=== PATIENT | female | born 1985 | race Caucasian/White ===

== ENCOUNTER → 2016-03-30 | Outpatient (CLI) | payer OTHER ==
[~2016-03-30] MED LIST: CALC500C3; MTR600X PO; PRENTAB26 PO
[2016-03-30 14:08] LABS: GTGD 50 Grams
[2016-03-31 15:19] LABS: AFP CONCENTRATION 44.4 NG/ML; AFP MULTIPLE OF MEDIAN 1.04; AFPTS GESTATIONAL AGE 17.4 WEEKS; AFPTS INSULIN DEP DIABETIC? NO; AFPTS MATERNAL WT 133 LBS; ALPHA-FETOPROTEIN RACE CAUCASIAN=W; EDD DETERMINED BY ULTRASOUND; ESTRIOL MULTIPLE OF MEDIAN 0.76; HISTORY OF NTD NO; INHIBIN A 174 PG/ML; INHIBIN A MOM 0.99; REPEAT SAMPLE? NO; hCG MULTIPLE OF MEDIAN 1.33
== END | disposition home or self-care (01) ==
LOC: C.LAB1850 09:58
PROVIDERS: ATTEND Obstetrics & Gynecology
DX: O20.0 Threatened abortion (principal)

== ENCOUNTER → 2016-04-15 | Outpatient (CLI) | payer OTHER | END | disposition home or self-care (01) | LOC: C.LAB1850 08:48 | PROVIDERS: ATTEND Obstetrics & Gynecology | DX: O28.1 Abnormal biochemical finding on antenatal screening of mother (principal); Z3A.00 Weeks of gestation of pregnancy not specified ==

== ENCOUNTER → 2016-06-16 | Outpatient (CLI) | payer OTHER ==
[2016-06-16 09:49] LABS: HEMATOCRIT 37.7 % (37-47)
[2016-06-16 17:52] LABS: URINE APPEARANCE CLEAR (CLEAR); URINE BILIRUBIN NEG (NEG); URINE COLOR YELLOW; URINE NITRITE NEG (NEG); URINE PH 5.5 (4.5-7.5); URINE SPECIFIC GRAVITY 1.018 (1.000-1.030); UROBILINOGEN NEG (NEG)
[2016-06-16 17:53] LABS: MANUAL MICROSCOPIC REQUIRED? NO; REVIEW REQ? NO
== END | disposition home or self-care (01) ==
LOC: C.LAB1850 07:02
PROVIDERS: ATTEND Obstetrics & Gynecology
DX: O34.219 Maternal care for unspecified type scar from previous cesarean delivery (principal); O28.1 Abnormal biochemical finding on antenatal screening of mother

== ENCOUNTER 2016-06-30 14:12 | Emergency (ER) | payer OTHER ==
[~2016-06-30] VITALS: Ht 172.7 cm; Wt 72.9 kg
[~2016-06-30 14:12] MED LIST changes: -CALC500C3
[2016-06-30 14:17] VITALS: TEMP 36.7; Ht 172.7 cm; Wt 72.9 kg
[2016-06-30] MEDS ORDERED: XYLOCAINE 1%/SOD BICARB 20 ML VIAL INFIL ONE (14:30)
--- NOTE | 2016-06-30 14:59 | EMERGENCY ROOM VISIT NOTE ---
ED Visit Note First contact with patient: 14:21 CHIEF COMPLAINT: Left upper Leg laceration HISTORY OF PRESENT ILLNESS: This 31 week female presents the ER with chief complaint of left thigh laceration. The patient states that she was crafting and accidentally cut her left thigh with an X-Acto knife. Her tetanus is up-to-date. The bleeding has stopped. The patient is not on any blood thinners. REVIEW OF SYSTEMS: 6 system review was performed and was negative unless stated otherwise in history of present illness. PMH: The patient is healthy; SOCIAL HISTORY: Patient denies any tobacco or alcohol use. PHYSICAL EXAM: Vital Signs: Were reviewed Reviewed Nurse's notes. GENERAL: 31 week female appears in no acute distress. MENTAL Status: Alert and oriented 3. LEFT THIGH: There is a 1 cm long laceration on the anterior aspect of the leg. The edges are gaping apart. There is no foreign material in the wound and it looks clean. There is no active bleeding. No deep structures such as tendons or nerves are seen in the base of the wound. EMERGENCY DEPARTMENT COURSE: The patient was evaluated. The patient's EMR and medication list were reviewed. Wound Repair: Complexity: Basic. Verbal consent was obtained after the risks and benefits were explained, including but not limited to bleeding, scarring, infection, pain, and bone/joint /nerve damage. The skin was prepped with betadine and a sterile field set. The wound was anesthetized with 1.0 ml of 1% buffered lidocaine. With direct pressure the bleeding subsided. Copious irrigation was performed using sterile saline. The wound was explored for foreign bodies and none found. Debridement was not performed. The wound edges were approximated using 5-0 Ethilon with 3 simple interrupted sutures. Hemostasis and excellent approximation was achieved. Antibacterial ointment and a sterile dressing applied. Detailed wound care instructions and signs and symptoms of infection reviewed with the patient. No complications and the patient tolerated the procedure well. DIAGNOSIS: 1 cm left Leg laceration DISCHARGE INSTRUCTIONS & TREATMENT: Keep wound clean and dry. No water on the area for 12-24 hrs then no soaking until sutures removed. Do not allow any crusting or dried blood to accumulate on sutures. If this occurs, use a 1:1 solution of hydrogen peroxide/water on a Q-tip to clean the wound. Use an antibiotic ointment for 3-4 days, then let wound dry. Suture removal in 8-10 days. Follow up sooner for any signs of infection (increasing redness, swelling , drainage). Ice and elevate for swelling and pain. Tylenol 650 mg every 6 hrs for pain. Keep covered when in sun until sutures removed then SPF 50 or higher for one year. Vitamin E oil if desired two weeks after suture removal for reduction of scar. Problem List Medical Problems: (1) Bronchitis Status: Chronic (2) Pneumonia Status: Chronic Surgical Problems: (1) Hx of tonsillectomy Status: Resolved Current/Historical Medications Scheduled Multivit/Min/Iron/Fol Ac/Pren ( Vitamin), 1 TAB PO DAILY Allergies Coded Allergies: No Known Allergies (Unverified , 03/23/14) Vital Signs Date Time Temp Pulse Resp B/P Pulse Ox O2 Delivery O2 Flow Rate FiO2 06/30/16 14:17 36.7 92 18 133/84 100 Room Air Departure Information Referrals No Doctor, Assigned (PCP) Patient Instructions [facility]
[2016-06-30 15:04] VITALS: BP 129/72; PULSE 94; O2SAT 97
== END 2016-06-30 15:13 | disposition home or self-care (01) ==
LOC: C.EDB 14:16 → C.EDD 15:13
DX: S81.812A Laceration without foreign body, left lower leg, initial encounter (principal); W26.0XXA Contact with knife, initial encounter; Z3A.31 31 weeks gestation of pregnancy

== ENCOUNTER → 2016-08-08 | Outpatient (CLI) | payer OTHER ==
[~2016-08-08] MED LIST changes: +CALC500C3; -MTR600X PO
== END | disposition home or self-care (01) ==
LOC: C.LABSPEC 17:36
PROVIDERS: ATTEND Obstetrics & Gynecology
DX: Z34.83 Encounter for supervision of other normal pregnancy, third trimester (principal)

== ENCOUNTER 2016-08-19 08:36 | Inpatient (IN) | payer OTHER ==
[~2016-08-19] VITALS: Ht 172.7 cm; Wt 78.5 kg
[~2016-08-19 08:36] MED LIST changes: -CALC500C3
[2016-08-19] MEDS ORDERED: LACTATED RINGER'S 1000ML 1,000 ML IV SCH (09:33)
[2016-08-19] MEDS ORDERED: LACTATED RINGER'S 1000ML 1,000 ML IV PRN (09:33)
[2016-08-19] MEDS ORDERED: PENICILLIN G POTASSIUM IV 3 MU in DEXTROSE 5% 100ML 100 ML IV PRN (09:45)
[2016-08-19] MEDS ORDERED: PENICILLIN G POTASSIUM IV 6 MU in DEXTROSE 5% 250ML 250 ML IV ONE (10:00)
[2016-08-19 10:04] LABS: HEMATOCRIT 39.5 % (37-47); MEAN CELL VOLUME 78.2 fL (80-100); MEAN CORPUSCULAR HEMOGLOBIN 24.8 pg (25-34); MEAN CORPUSCULAR HGB CONC 31.6 g/dl (32-36); MEAN PLATELET VOLUME 9.4 fL (7.4-10.4); PLATELET COUNT 299 K/uL (130-400); RED BLOOD COUNT 5.05 M/uL (4.2-5.4); WHITE BLOOD COUNT 16.33 K/uL (4.8-10.8)
[2016-08-19 10:20] VITALS: Ht 172.7 cm; Wt 78.5 kg
[2016-08-19] MEDS ORDERED: CALC500C3 (10:20)
[2016-08-19] MEDS ORDERED: BUPIVACAINE 0.25% 30 ML VIAL ONE (10:42)
[2016-08-19] MEDS ORDERED: FENTANYL 2MCG/ML ROPIV 1.25MG/ML 100ML BAG EPI ONE (10:43)
[2016-08-19] MEDS ORDERED: EpHEDrine SULFATE INJ 50 MG/ML AMP ONE (10:43)
[2016-08-19] MEDS ORDERED: FENTANYL CITRATE INJ 50 MCG/1 ML 2 ML VIAL ONE (10:43)
[2016-08-19] MEDS ORDERED: LACTATED RINGER'S 1000ML 500 ML IV PRN ×2 (11:22→11:28)
[2016-08-19] MEDS ORDERED: NALOXONE HCL INJ 1 MG in SODIUM CHLORIDE 0.9% 1000ML 1,000 ML IV PRN ×4 (11:28)
[2016-08-19] MEDS ORDERED: DiphenhydrAMINE HCL 50 MG/ML VIAL IV PRN (11:30)
[2016-08-19] MEDS ORDERED: NALOXONE HCL INJ 0.4 MG/1 ML VIAL/CARP IV PRN (11:30)
[2016-08-19] MEDS ORDERED: NALBUPHINE HCL INJ 10 MG/ML AMP IV PRN (11:30)
[2016-08-19] MEDS ORDERED: PROMETHAZINE HCL INJ 25 MG in SODIUM CHLORIDE 0.9% 50ML 50 ML IV PRN (11:30)
[2016-08-19] MEDS ORDERED: OXYTOCIN 30 UNITS/500ML NSS IV PRN ×2 (11:30→14:00)
[2016-08-19] MEDS ORDERED: FENTANYL 2MCG/ML ROPIV 1.25MG/ML 100ML BAG EPI PRN (11:30)
[2016-08-19] MEDS ORDERED: EpHEDrine SULFATE INJ 50 MG/ML AMP IV PRN (11:30)
--- NOTE | 2016-08-19 12:13 | Medical Student: [facility] ---
Med Student History & Physical Date of Service Aug 19, 2016. Chief Complaint Ruptured Membranes History of Present Illness Source: patient Mely is a 31 year old female with an EDC of 09/04/2016 confirmed by ultrasound who presents at 37+5 weeks GA due to SROM. She is an employee here at [employer] and while working this morning, she experienced some leakage of fluid. She reports a small amount of vaginal bleeding today, contractions, and movements. She also reports losing the mucus plug beginning two days ago. As her contractions increased, she requested an epidural. Her was complicated by unexplained vaginal bleeding from week 7 to approximately week 15-16. Since then, she has had no episodes of vaginal bleeding (except for as noted above). Mely also has a history of depression, for which has never been treated with medication. She reports stressful events in her family but says her depression never got to be "as bad as it once was" and denies having thoughts of self-harm during . Otherwise, she has had an unremarkable course since the cessation of bleeding episodes. labs: Blood type A+ GBS positive Negative Ab screen Initial Hct/Hb - 41.2/13.8 Rubella immune VDRL/RPR nonreactive HBsAg negative HIV counseling/testing negative Gonorrhea/chlamydia negative Diabetes screen - 121 mg/dL Negative screening for CF, negative second trimester serum screening OB History G1: delivery of a live male in August 2014 via emergency due to non-reassuring heart tones and terminal bradycardia at 37+3 weeks GA. 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 Cycles last 28 days (OCP use). Menses last 5-6 days. Last Pap smear was in 2013. Denies hx of abnormal Pap smear. Negative STI history. Past Medical History Significant for depression, which has never been treated with medication. Otherwise she denies a history of chronic medical conditions and allergies. She reports taking no medications regularly aside from a vitamin. Past Surgical History Emergency in 2014, tonsillectomy, wisdom teeth removal. Family History Positive breast cancer history in maternal grandmother and lung cancer in grandfather. Mother and siblings have no chronic medical conditions, including hx of DM and HTN. Father has DM. No hx of stroke or AL. Social History Smoking Status: Former Smoker Alcohol Use: socially (not had alcohol during ) Drug Use: none Marital Status: Housing status: lives with significant other Occupational Status: employed (works in [employer]) Allergies Coded Allergies: No Known Allergies (Unverified , 08/19/16) Home Medications Calcium Carbonate (Tums) Multivit/Min/Iron/Fol Ac/Pren ( Vitamin), 1 TAB PO DAILY Review of Systems Constitutional: No fever, No chills Eyes: No worsening of vision Respiratory: No wheezing, No shortness of breath, No dyspnea on exertion, No dyspnea at rest Cardiovascular: No chest pain, No edema Abdomen: No pain, No nausea, No vomiting, No diarrhea, No constipation Musculoskeletal: + problem reported Genitourinary - Female: No dysuria Normal as per HPI. Monitoring External Monitor: Baseline 150 bpm. Moderate variability. Absent accels. Early decels. Tocodynamometer: Contractions every 6 minutes. Laboratory Results 08/19/16 09:52 Test 08/19/16 09:52 Red Blood Count 5.05 M/uL (4.2-5.4) Mean Corpuscular Volume 78.2 fL (80-100) Mean Corpuscular Hemoglobin 24.8 pg (25-34) Mean Corpuscular Hemoglobin Concent 31.6 g/dl (32-36) RDW Standard Deviation 41.9 fL (36.4-46.3) RDW Coefficient of Variation 14.9 % (11.5-14.5) Mean Platelet Volume 9.4 fL (7.4-10.4) Assessment and Plan Mely is a 31 year old female with an EDC of 09/04/2016 confirmed by ultrasound who presents at 37+5 weeks GA due to SROM. Her was complicated by vaginal bleeding from week 7 to week 15-16. Expectant management. Continue monitoring with external heart monitor and tocodynamometer.
[2016-08-19] MEDS ORDERED: LANOLIN OINT EXT PRN ×2 (14:00)
[2016-08-19] MEDS ORDERED: BENZOCAINE 20% AER SPR 82.5 GM CAN EXT PRN (14:00)
[2016-08-19] MEDS ORDERED: ACETAMINOPHEN/CODEINE 300/30MG TAB PO PRN ×2 (14:00)
[2016-08-19] MEDS ORDERED: SUPERCREAM 0.870 % 15GM JAR EXT PRN (14:00)
[2016-08-19] MEDS ORDERED: ACETAMINOPHEN 325 MG TAB PO PRN (14:00)
[2016-08-19] MEDS ORDERED: HYDROCORTISONE ACETATE 25 MG SUPP PR PRN (14:00)
--- NOTE | 2016-08-19 14:18 | Vaginal Delivery Summary ---
Vaginal Delivery Summary The patient is a 31-year-old 2 para 1 with an EDC of 04 September who presented at 37+ weeks gestational age with spontaneous rupture of membranes. Patient was out of work and states that she was having some mild contractions subsequent rupture of membranes with increasing intensity. Patient's EDC established by dates and first trimester ultrasound. The patient's first ended in section for nonreassuring heart rate tracing. The patient desired a vaginal after section for this . She had been consented for the risks and benefits and had signed the consent. Patient's blood work shows a blood type of A+ antibody negative rubella immune hepatitis B negative she had a negative quad screen. She had an elevated 100 Glucola at 16 weeks with normal 2 hour glucose tolerance test at both 16 and 28 weeks she had a positive surge Mr. group B strep culture. Upon admission the patient was 4 cm dilated 80% effaced and -2 station penicillin was initiated for the positive GBS. Patient's contractions increased in intensity but were approximately every 7-8 minutes. She initially received an epidural and then Pitocin was initiated to bring the contractions closer together. Over the next 2 hours the patient progressed to full dilatation and began her second stage she pushed for approximately 30 minutes delivering a viable female over a second-degree midline laceration cord blood samples obtained placental delivered spontaneously in midline second degree laceration repaired with 4-0 Vicryl in routine fashion assessment a blood loss was 300 cc. Sponge and needle count was correct.
--- NOTE | 2016-08-19 16:00 | Anesthesia Procedure Note ---
Anesthesia Epidural Removal Nt Date & Time Aug 19, 2016 at 16:00 Vital Signs Pain Intensity: 8.0 Notes Mental Status: alert / awake / arousable, participated in evaluation Nausea / Vomiting: adequately controlled Pain: adequately controlled Airway Patency, RR, SpO2: stable & adequate BP & HR: stable & adequate Hydration State: stable & adequate Neuraxial Anesthesia: was administered Anesthetic Complications: no major complications apparent, pt satisfied with anesthetic care Epidural: removed without complications, with tip intact
[2016-08-19 16:25] VITALS: BP 143/92; PULSE 80; TEMP 37
[2016-08-19] MEDS: IBUPROFEN 600 MG TAB PO PRN (19:38)
[2016-08-19] MEDS: DOCUSATE SODIUM 100 MG CAP PO SCH (19:38)
[2016-08-19 19:40] VITALS: BP 123/79; PULSE 76; TEMP 36.6
[2016-08-20] VITALS (7 sets, daily range): BP systolic 106–130; BP diastolic 68–93; PULSE 65–85; TEMP 36.4–36.7; O2SAT 97–99
[2016-08-20] MEDS: IBUPROFEN 600 MG TAB PO PRN ×3 (04:56→19:38)
[2016-08-20 06:45] LABS: HEMATOCRIT 36.3 % (37-47)
--- NOTE | 2016-08-20 08:29 | Progress Note ---
Subjective Aug 20, 2016. Subjective conversation w/ patient, physical exam Ambulation: ambulating normally Feeding Type: Breast Feeding Objective Vital Signs Date Time Temp Pulse Resp B/P (MAP) Pulse Ox O2 Delivery O2 Flow Rate FiO2 08/20/16 04:40 36.6 85 20 125/80 (95) Room Air 08/20/16 00:00 Room Air 08/20/16 00:00 36.4 73 20 110/69 (83) Room Air 08/19/16 19:40 36.6 76 20 123/79 (94) Room Air 08/19/16 16:25 37.0 80 18 143/92 (109) Room Air 08/19/16 16:25 Room Air Physical Exam General Appearance: WELL-APPEARING, NO APPARENT DISTRESS Fundus: Firm, Non-Tender Extremities: no calf tenderness Laboratory Results Last 24 Hours Test 08/19/16 09:52 08/20/16 06:24 White Blood Count 16.33 K/uL Red Blood Count 5.05 M/uL Hemoglobin 12.5 g/dL 11.8 g/dL Hematocrit 39.5 % 36.3 % Mean Corpuscular Volume 78.2 fL Mean Corpuscular Hemoglobin 24.8 pg Mean Corpuscular Hemoglobin Concent 31.6 g/dl RDW Standard Deviation 41.9 fL RDW Coefficient of Variation 14.9 % Platelet Count 299 K/uL Mean Platelet Volume 9.4 fL Assessment and Plan Problem List Medical Problems: (1) Leg laceration Status: Acute Post- Day#: 1 Continue Routine Care: - routine care - doing well
[2016-08-20] MEDS ORDERED: DIPHTHERIA/TETANUS/PERTUSSIS 0.5 ML SYR/VIAL IM. ONE (09:00)
[2016-08-20] MEDS: PRENATAL VITAMIN TAB PO SCH (09:01)
[2016-08-20] MEDS: FERROUS SULFATE 325 MG TAB PO SCH (09:01)
[2016-08-20] MEDS: DOCUSATE SODIUM 100 MG CAP PO SCH ×2 (09:01→19:38)
[2016-08-20] MEDS ORDERED: COUGH DROP (SUGAR FREE) LOZ 24 LOZ/1 BOX PO PRN (15:45)
[2016-08-20] MEDS ORDERED: BISACODYL 5 MG TABEC PO SCH (20:00)
--- NOTE | 2016-08-20 23:49 | Discharge Instructions ---
Discharge Instructions Date of Service Aug 20, 2016. Admission Reason for Admission: Ruptured Membranes Discharge Discharge Diagnosis / Problem: after delivery Discharge Goals Goal(s): Routine recovery after delivery Medications Continue Dispensed Medications: supercream, dermaplast, tucks, lansinoh Activity Recommendations Activity Limitations: as noted below . Instructions / Follow-Up Instructions / Follow-Up ACTIVITY RECOMMENDATIONS: * Gradual return to full activity over the next 2-3 weeks. * No lifting - nothing heavier than baby over the next 2-3 weeks. * Do not engage in vigorous exercise, sexual activity or sports until cleared by your physician. * Do not drive or operate any motorized equipment until cleared by your physician. * You may shower/bathe daily. MEDICATIONS: For discomfort or pain, you may use Acetaminophen (Tylenol), Ibuprofen (Advil), or Naproxen (Aleve) following the package directions. For constipation you may use Colace following the package directions. BREAST CARE: If you are not breast feeding: * Wear a supportive bra 24 hours a day for one to two weeks. * Avoid stimulating your breasts and nipples as much as possible during the first few weeks after delivery. * When taking a shower, have the warm water hit your back, not breasts. * When your breasts feel full, apply ice packs. Usually three to four times a day helps ease the discomfort. * Take a mild pain medication (Tylenol / Motrin) when you are uncomfortable. If breast feeding: * Use breast milk to lubricate nipples. Lansinoh cream may be used for sore nipples. You do not need to remove cream prior to breast feeding. If using a different brand of cream, check the label for directions regarding removal of cream prior to nursing. * Wear a supportive bra. * If having problems with breasts or breast feeding, call a accounting consultant or your health care provider. EPISIOTOMY CARE: After delivery, if you have an episiotomy (stitches), the following steps will ease discomfort and aid healing. * For the first 24 hours after delivery, place ice packs next to your episiotomy to help reduce swelling. * After the first 24 hour-period, sitz baths, either portable or in the tub, are suggested. A shower with a shower arm sprayed over the episiotomy may be comforting. * Danuta care should be done after each voiding and bowel movement. Squirt warm water from a plastic bottle over the perineum (region of the body between the anus and urinary opening) and pat dry. * Use Dermoplast to ease discomfort. Shake container. [place] directly over the episiotomy. Place a Tucks on a clean sanitary pad next to your episiotomy. SPECIAL CARE INSTRUCTIONS: When you are discharged from the hospital, it is important for you to follow the instructions listed below: * During the first week at home, you should be able to care for yourself and your baby. In addition, the usual light household activities are encouraged. * Limit your activities to the way you feel. Do not try to clean the house or move furniture. Be sensible. * If you actively engage in sports and have done so up until the time of your delivery, you may resume these activities as soon as you feel able. This may take up to one month or even longer. Use good judgment. * Continue to take your vitamins for at least six weeks after the of your baby. * Your diet need not be limited unless you were on a special diet before your delivery. Breast-feeding mothers need around 2500 calories per day and at least 64-80 ounces of fluid per day (8 to 10 glasses). * You should eat foods from the four major food groups. Crash diets or fad diets are to be avoided. Eating lean meats, fresh fruits and vegetables, low-fat dairy products, high fiber foods and a regular exercise program, will help you get back to your pre- weight without putting your health at risk. * Constipation is sometimes a problem after delivery. Take a mild laxative as needed. If breast feeding, Milk of Magnesia is acceptable to use. You may use a suppository or Fleets enema if no episiotomy. * A daily shower or tub bath is suggested. Be sure to thoroughly and gently dry the perineum. * A bloody vaginal discharge will usually continue until around four weeks post . A small amount of bleeding may continue for as long as six weeks. Vaginal discharge changes from the bright red bleeding after delivery to pink then brownish and finally yellowish-pink before becoming white and disappearing. * Bleeding may increase with activity. Your first period may come in 4-8 weeks. If you are breast feeding, your period may be delayed even longer. * [place] (sex) can begin whenever both you and your partner feel comfortable and do not have any form of genital infection. It is recommended that you wait at least six weeks for internal and external healing to occur. If you have questions, please talk to your health care practitioner. A condom should be used to prevent infection and . * Foreplay, gentle intercourse and lubrication is very important the first several times to prevent pain. A water-based lubricant such as K-Y jelly or Astroglide may be used. * If you have RH negative blood and your baby is RH positive, you will receive RHOGAM by injection prior to discharge. The nurse will give you a card to keep with you that has the date and place that you received RHOGAM after delivery. * During your care, you had a Rubella screen done to check for the presence of rubella antibodies in your blood. If your test was negative, you will receive a Rubella vaccine prior to discharge. This vaccine may cause a fever, soreness at the injection site and flu-like symptoms. If these symptoms persist, notify your health care practitioner. is not advised for one month after a Rubella vaccine. * Verbalizes understanding of car seat law as reviewed with patient nursing. * Car Seat hand-out given and reviewed with patient by nursing. * Shaken baby information reviewed with patient by nursing. Call you doctor if: * Heavy bleeding (saturating several pads an hour) or passing clots the size of your fist. * A fever >101 degrees F (38.3 degrees C) on two occasions four hours apart and /or chills. * Unusual pain in the pelvic or vaginal areas. * "Baby Blues" lasting longer than two weeks. If you have any questions or concerns, call your health care practitioner at . FOLLOW UP VISIT: * Please call the office at to schedule a 6 week examination. It is important you keep this appointment. It is important for you to make arrangements for either yearly or twice yearly check-ups thereafter. Current Hospital Diet Patient's current hospital diet: Regular OB Diet Discharge Diet Recommended Diet: Regular Diet Pending Studies Studies pending at discharge: no Medical Emergencies . Who to Call and When: Medical Emergencies: If at any time you feel your situation is an emergency, please call 911 immediately. . Non-Emergent Contact Non-Emergency issues call your: [facility] . . "Provider Documentation" section prepared by Linette Zamora. . VTE Core Measure Inpt VTE Proph given/why not?: Treatment not indicated
[2016-08-21 07:10] VITALS: BP 117/80; PULSE 75; TEMP 36.4; O2SAT 100
--- NOTE | 2016-08-21 07:28 | Progress Note ---
Subjective Aug 21, 2016. Subjective conversation w/ patient, physical exam Ambulation: ambulating normally Voiding: no voiding problems Diet Tolerance: Regular Diet Lochia: Small Feeding Type: Breast Feeding Pain: no complaints Objective Vital Signs Date Time Temp Pulse Resp B/P (MAP) Pulse Ox O2 Delivery O2 Flow Rate FiO2 08/20/16 23:30 Room Air 08/20/16 23:30 36.6 65 20 106/68 (81) Room Air 08/20/16 15:50 Room Air 08/20/16 15:29 36.5 78 20 122/93 (103) 97 Room Air 08/20/16 12:37 36.7 69 20 130/80 (97) 99 Room Air 08/20/16 08:00 36.6 76 22 116/80 (92) 98 Room Air Physical Exam General Appearance: WELL-APPEARING, WD/WN, NO APPARENT DISTRESS Respiratory/Chest: lungs clear Cardiovascular: regular rate, rhythm Abdomen: non tender, soft Fundus: Firm, Relation to Umbilicus (2 down) Extremities: non-tender Assessment and Plan Problem List Medical Problems: (1) Leg laceration Status: Acute Post- Day#: 2 Continue Routine Care: stable, ready for d/c home, instructions reviewed, f/u 6 wk pp check. breast feeding, rh pos, rubella immune.
[2016-08-21] MEDS: FERROUS SULFATE 325 MG TAB PO SCH (08:00)
[2016-08-21] MEDS: IBUPROFEN 600 MG TAB PO PRN (08:14)
[2016-08-21] MEDS: PRENATAL VITAMIN TAB PO SCH (08:14)
[2016-08-21] MEDS: DOCUSATE SODIUM 100 MG CAP PO SCH (08:14)
[2016-08-21 11:00] VITALS: BP_DIAS 80; PULSE 75; TEMP 36.4
== END 2016-08-21 11:15 | disposition home or self-care (01) | DRG 775 ==
LOC: C.LD 08:36 → C.OBG 16:25
PROVIDERS: ADMIT Obstetrics & Gynecology; ATTEND Obstetrics & Gynecology
PROC: 10E0XZZ Delivery of Products of Conception, External Approach (ICD-10-PCS; principal; 2016-08-19)
PROC: 0KQM0ZZ Repair Perineum Muscle, Open Approach (ICD-10-PCS; principal; 2016-08-19)
DX: O99.824 Streptococcus B carrier state complicating childbirth (principal); Z3A.37 37 weeks gestation of pregnancy; O70.1 Second degree perineal laceration during delivery; Z37.0 Single live birth

== ENCOUNTER → 2016-10-13 | Outpatient (CLI) | payer OTHER ==
[~2016-10-13] MED LIST changes: +CALC500C3
== END | disposition home or self-care (01) ==
LOC: C.PAPS 16:34
PROVIDERS: ATTEND Obstetrics & Gynecology
DX: Z12.4 Encounter for screening for malignant neoplasm of cervix (principal)

== ENCOUNTER 2020-01-01 06:01 | Observation (INO) ==
--- NOTE | 2020-01-01 06:44 | Emergency Department Note ---
Impression & Plan Acute appendicitis, Rhinovirus, Acute right lower quadrant pain ED Provider Note NAME: AYAD JOHNSON AGE: 34 SEX: F ARRIVES VIA: Walk-In INFORMANT: Patient, ED PROVIDER(S): Marco Gibbs MD CHIEF COMPLAINT: Abdominal pain PLAN: Disposition: Admit to OR MEDICAL DECISION MAKING: The patient is a pleasant 34-year-old woman who presents emergency department for evaluation of right lower quadrant pain that began abruptly last night with associated vomiting x1 and persistent nausea. Her symptoms occur in the setting of having upper respiratory congestion that began over the weekend with mild sore throat but this is been improving. She denies any fevers, diarrhea, urinary symptoms. She is a week away from starting her cycle but does not typically get this type of pain or symptoms until the day prior. She denies any concerns for possibility of . 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 Otherwise she has a son in the garden but there are no reports of COVID-19 at his school. On arrival the patient is fatigued/uncomfortable appearing in no acute distress, afebrile stable vital signs. She has mild right lower quadrant tenderness without guarding or rebound. WBC 16.2 with neutrophil predominance. Chemistry without acidosis. Potassium 3.3 and electrolytes otherwise unremarkable. LFTs unremarkable. hCG was negative. UA with epithelial cells and patient denies urinary symptoms. Patient did have a bio fire performed and this was positive for rhinovirus which explains her recent URI symptoms. Importantly her bio fire was otherwise negative including a negative COVID-[address] had and pelvis subsequently did demonstrate appendiceal enlargement that was suspicious for appendicitis given the patient's point tenderness over McBurney's point and evolution of symptoms. Patient was ordered for cefoxitin. Resident, Dr. Mynor Solis, updated the patient on the plan. Resident, Dr. Mynor Solis, reviewed the patient's case with general surgery, Raymon Weber, general surgery BERENICE, with Dr. Nino, general surgery who admit the patient to the OR. This patient was managed with the assistance of resident, Dr. Mynor Solis. I discussed the case with the resident, examined the patient, and confirm the findings and plan as documented in this note. Triage Nursing notes reviewed and agree them. Prior medical records reviewed Vital Signs: reviewed and remarkable for no significant abnormalities Differential diagnosis: Appendicitis, ovarian cyst, ovarian torsion, ectopic , TOA, PID, infections, diverticulitis, UTI, obstruction, mesenteric ischemia, aortic pathology, inflammatory bowel disease, renal colic, PUD, pancreatitis, biliary pathology, hernia, volvulus, constipation, as well as other pathologies. ER treatment provided: See below. Diagnostics interpreted by me: Cardiac Monitoring: An order for continuous cardiac monitoring was placed and demonstrated NSR, 80 bpm, no ectopy. Laboratory studies: See below Imaging studies: CT abd pelvis IV con only CLINICAL HISTORY: Right-sided abdominal pain. Nausea. COMPARISON STUDY: July 2007 TECHNIQUE: Patient was scanned in a dynamic helical fashion during intravenous administration of 94 cc of Optiray 320 A dose lowering technique was utilized adhering to the principles of ALARA. CT DOSE: 294.07 mGy.cm FINDINGS: Lower chest: The heart is normal in size and configuration, without pericardial effusion. The lung bases and pleural spaces are clear. Liver: The contrast-enhanced liver is normal in size, contour, and attenuation. There is no intrahepatic biliary ductal dilatation. The hepatic veins and portal veins are patent. Gallbladder: Unremarkable. Spleen: Normal in size and attenuation. Pancreas: Unremarkable. Adrenal glands: Unremarkable. Kidneys: There is symmetric renal cortical enhancement. The kidneys are normal in size without hydronephrosis. Bowel: There are no transition zones indicate bowel obstruction. There is no evidence of acute diverticulitis. There is mild appendiceal thickening which measures 8 mm in maximal diameter. This represents an interval increase in diameter when compared with the prior study. In the setting of right lower quadrant abdominal pain this could indicate an early acute appendicitis. Clinical correlation in this regard is advocated. Peritoneum: There is no free air. There is a small amount of free pelvic fluid. Vasculature: The abdominal aorta is normal in course and caliber. Adenopathy: None. Pelvic viscera: The bladder, and pelvic viscera are unremarkable. Skeletal structures: No destructive osseous lesions are seen. IMPRESSION: 1. No evidence of bowel obstruction. No evidence of free air 2. Mild appendiceal thickening which measures 8 mm in maximal diameter. In the setting of right lower quadrant abdominal pain, this could indicate an early acute appendicitis. Clinical correlation in this regard is advocated. Consultation(s): Raymon Weber, general surgery BERENICE, with Dr. Nino, general surgery HPI: The patient is a pleasant 34-year-old woman who presents emergency department for evaluation of right lower quadrant pain that began abruptly last night with associated vomiting x1 and persistent nausea. Her symptoms occur in the setting of having upper respiratory congestion that began over the weekend with mild sore throat but this is been improving. She denies any fevers, diarrhea, urinary symptoms. She is a week away from starting her cycle but does not typically get this type of pain or symptoms until the day prior. She denies any concerns for possibility of . 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 Otherwise she has a son in the garden but there are no reports of COVID-19 at a school. ROS: See above HPI for pertinent positives & negatives. A total of 10 systems r eviewed and were otherwise negative. PAST MEDICAL HISTORY:See Below PAST SURGICAL HISTORY:See Below FAMILY HISTORY:See Below SOCIAL HISTORY:See Below HOME MEDICATIONS:See Below ALLERGIES:See Below VITALS:See Below PHYSICAL EXAMINATION: GENERAL: Awake, alert, uncomfortable-appearing, in no distress HENT: Normocephalic, atraumatic. Oropharynx with dry mucous membranes and otherwise unremarkable. EYES: Normal conjunctiva. Sclera non-icteric. NECK: Supple. No nuchal rigidity. FROM. No JVD. RESPIRATORY: Clear to auscultation. CARDIAC: Regular rate, normal rhythm. Extremities warm and well perfused. Pulses equal. ABDOMEN: Soft, non-distended. Mild right lower quadrant tenderness to palpation. No rebound or guarding. No masses. RECTAL: Deferred. MUSCULOSKELETAL: Chest examination reveals no tenderness. The back is symmetrical on inspection without obvious abnormality. There is no CVA tenderness to palpation. No joint edema. LOWER EXTREMITIES: Calves are equal size bilaterally and non-tender. No edema. No discoloration. NEURO: Normal sensorium. No sensory or motor deficits noted. SKIN: No rash or jaundice noted. Marco Gibbs MD Past Med/Surg History Medical History Group B streptococcal infection during H/O varicella Surgical History History of laparoscopic appendectomy (01/01/20) Laparoscopic Appendectomy Dr. Nnio 01/01/2020 S/P section S/P tonsillectomy [place] teeth extracted Family History Grandmother (Maternal) Diabetes Breast cancer Grandmother (Paternal) Diabetes Other Tuberculosis Social History Smoking Status: Former smoker Do You Dip or Chew Tobacco: No; Hx Alcohol Use: No Hx Substance Use: No Preferred Language: Wallisian Feels Safe at Home: Yes Allergies Allergies Allergy/AdvReac Type Severity Reaction Status Date / Time No Known Allergies Allergy Unverified 08/19/16 10:19 Home Meds Home Medications Medication Instructions Recorded Confirmed No Known Home Medications 01/01/20 01/01/20 Results & Data (ED) Vital Signs Vital Signs - 24 hr 01/01/20 06:09 01/01/20 08:01 01/01/20 12:01 Temperature 36.4 C L 37.3 C Temperature Source Oral Oral Pulse Rate 94 H Pulse Rate [Apical] 78 81 Pulse Rhythm Regular Pulse Strength Normal Respiratory Rate 18 18 16 Respiratory Effort / Characteristics Non-Labored Spontaneous Respiratory Depth Normal Respiratory Pattern Regular Blood Pressure 143/98 H Blood Pressure [Left Arm] 133/86 127/82 Blood Pressure Mean 113 Blood Pressure Mean [Left Arm] 101 97 Blood Pressure Position Sitting Pulse Oximetry 100 98 100 Oxygen Delivery Method Room Air Room Air Room Air Sepsis Recent Fever Within 48 Hours No Sepsis New/Unexplained Change in Mental Status No Sepsis Action Taken by Nursing No Action Required Laboratory Data Attestation: I reviewed the patient's lab results. Result diagrams: 01/01/20 06:30 01/01/20 06:30 Lab Results 01/01/20 01/01/20 01/01/20 Range/Units 06:30 06:30 06:30 WBC 16.26 H (4.8-10.8) K/uL RBC 4.96 (4.2-5.4) M/uL Hgb 13.9 (12.0-16.0) g/dL Hct 42.5 (37-47) % MCV 85.7 (80-100) fL MCH 28.0 (25-34) pg MCHC 32.7 (32-36) g/dL RDW Std Deviation 41.7 (36.4-46.3) fL RDW Coeff of Samir 13.4 (11.5-14.5) % Plt Count 300 (130-400) K/uL MPV 10.3 (7.4-10.4) fL Immature Gran % (Auto) 0.3 % Neut % (Auto) 77.3 % Lymph % (Auto) 12.7 % [place] % (Auto) 4.8 % Eos % (Auto) 4.5 % Baso % (Auto) 0.4 % Neut # (Auto) 12.58 H (1.4-6.5) K/uL Lymph # (Auto) 2.06 (1.2-3.4) K/uL [place] # (Auto) 0.78 H (0.11-0.59) K/uL Eos # (Auto) 0.73 H (0-0.5) K/uL Baso # (Auto) 0.06 (0-0.2) K/uL Immature Gran # (Auto) 0.05 H (0.00-0.02) K/uL Sodium 139 (136-145) mmol/L Potassium 3.3 L (3.5-5.1) mmol/L Chloride 108 H (98-107) mmol/L Carbon Dioxide 25 (21-32) mmol/L Anion Gap 5.0 (3-11) BUN 9 (7-18) mg/dl Creatinine 0.92 (0.6-1.2) mg/dl Est Cr Clr Drug Dosing 78.7 ml/min Est GFR ( Amer) 94.8 Est GFR (Non-Af Amer) 81.8 BUN/Creatinine Ratio 9.7 L (10-20) Glucose 109 H (70-99) mg/dl Calcium 9.0 (8.5-10.1) mg/dl Total Bilirubin 0.5 (0.2-1) mg/dl AST 15 (15-37) U/L ALT 19 (12-78) U/L Alkaline Phosphatase 67 (45-117) U/L Total Protein 7.8 (6.4-8.2) gm/dl Albumin 4.0 (3.4-5.0) gm/dl Globulin 3.8 (2.5-4.0) gm/dl Albumin/Globulin Ratio 1.1 (0.9-2) HCG, Qual (Negative) Urine Color Yellow Urine Appearance Cloudy A (Clear) Urine pH 5.0 (4.5-7.5) Ur Specific [place] 1.024 (1.000-1.030) Urine Protein Negative (Negative) Urine Glucose (UA) Negative (Negative) Urine Ketones 2+ H (Negative) Urine Blood 2+ H (Negative) Urine Nitrite Negative (Negative) Urine Bilirubin Negative (Negative) Urine Urobilinogen Negative (Negative) Ur Leukocyte Esterase Negative (Negative) Urine WBC (Auto) 5-10 H (0-5) /hpf Urine RBC (Auto) 10-30 H (0-4) /hpf U Hyaline Cast (Auto) 1-5 (0-5) /lpf U Epithel Cells (Auto) >30 H (0-5) /lpf Urine Bacteria (Auto) 1+ H (Negative) Adenovirus (PCR) (NotDetected) B. pertussis DNA (PCR) (NotDetected) B.parapertussis DNA PCR (NotDetected) C. pneumoniae DNA (PCR) (NotDetected) Coronavirus OC43 (PCR) (NotDetected) Coronavirus HKU1 (PCR) (NotDetected) Coronavirus 229E (PCR) (NotDetected) COVID-19 PCR (NotDetected) Coronavirus NL63 (PCR) (NotDetected) Human Metapneumovir PCR (NotDetected) Influenza Type A (PCR) (NotDetected) Influenza Type B (PCR) (NotDetected) M. pneumoniae (PCR) (NotDetected) Parainfluenza 1 (PCR) (NotDetected) Parainfluenza 2 (PCR) (NotDetected) Parainfluenza 3 (PCR) (NotDetected) Parainfluenza 4 (PCR) (NotDetected) RSV (PCR) (NotDetected) Entero/Rhino (PCR) (NotDetected) 01/01/20 01/01/20 Range/Units 06:30 07:20 WBC (4.8-10.8) K/uL RBC (4.2-5.4) M/uL Hgb (12.0-16.0) g/dL Hct (37-47) % MCV (80-100) fL MCH (25-34) pg MCHC (32-36) g/dL RDW Std Deviation (36.4-46.3) fL RDW Coeff of Samir (11.5-14.5) % Plt Count (130-400) K/uL MPV (7.4-10.4) fL Immature Gran % (Auto) % Neut % (Auto) % Lymph % (Auto) % [place] % (Auto) % Eos % (Auto) % Baso % (Auto) % Neut # (Auto) (1.4-6.5) K/uL Lymph # (Auto) (1.2-3.4) K/uL [place] # (Auto) (0.11-0.59) K/uL Eos # (Auto) (0-0.5) K/uL Baso # (Auto) (0-0.2) K/uL Immature Gran # (Auto) (0.00-0.02) K/uL Sodium (136-145) mmol/L Potassium (3.5-5.1) mmol/L Chloride (98-107) mmol/L Carbon Dioxide (21-32) mmol/L Anion Gap (3-11) BUN (7-18) mg/dl Creatinine (0.6-1.2) mg/dl Est Cr Clr Drug Dosing ml/min Est GFR ( Amer) Est GFR (Non-Af Amer) BUN/Creatinine Ratio (10-20) Glucose (70-99) mg/dl Calcium (8.5-10.1) mg/dl Total Bilirubin (0.2-1) mg/dl AST (15-37) U/L ALT (12-78) U/L Alkaline Phosphatase (45-117) U/L Total Protein (6.4-8.2) gm/dl Albumin (3.4-5.0) gm/dl Globulin (2.5-4.0) gm/dl Albumin/Globulin Ratio (0.9-2) HCG, Qual Negative (Negative) Urine Color Urine Appearance (Clear) Urine pH (4.5-7.5) Ur Specific [place] (1.000-1.030) Urine Protein (Negative) Urine Glucose (UA) (Negative) Urine Ketones (Negative) Urine Blood (Negative) Urine Nitrite (Negative) Urine Bilirubin (Negative) Urine Urobilinogen (Negative) Ur Leukocyte Esterase (Negative) Urine WBC (Auto) (0-5) /hpf Urine RBC (Auto) (0-4) /hpf U Hyaline Cast (Auto) (0-5) /lpf U Epithel Cells (Auto) (0-5) /lpf Urine Bacteria (Auto) (Negative) Adenovirus (PCR) Not Detected (NotDetected) B. pertussis DNA (PCR) Not Detected (NotDetected) B.parapertussis DNA PCR Not Detected (NotDetected) C. pneumoniae DNA (PCR) Not Detected (NotDetected) Coronavirus OC43 (PCR) Not Detected (NotDetected) Coronavirus HKU1 (PCR) Not Detected (NotDetected) Coronavirus 229E (PCR) Not Detected (NotDetected) COVID-19 PCR Not Detected (NotDetected) Coronavirus NL63 (PCR) Not Detected (NotDetected) Human Metapneumovir PCR Not Detected (NotDetected) Influenza Type A (PCR) Not Detected (NotDetected) Influenza Type B (PCR) Not Detected (NotDetected) M. pneumoniae (PCR) Not Detected (NotDetected) Parainfluenza 1 (PCR) Not Detected (NotDetected) Parainfluenza 2 (PCR) Not Detected (NotDetected) Parainfluenza 3 (PCR) Not Detected (NotDetected) Parainfluenza 4 (PCR) Not Detected (NotDetected) RSV (PCR) Not Detected (NotDetected) Entero/Rhino (PCR) DETECTED A* (NotDetected) Administered Medications Hydromorphone HCl (Hydromorphone Inj 0.5 Mg/0.5 Ml Syr) 0.5 mg IV Q3HWA PRN PRN Reason: Pain Stop: 01/15/20 15:40 Last Admin: 01/01/20 17:00 Dose: 0.5 mg Documented by: [id number] Cefoxitin Sodium 1,000 mg/ (Dextrose) 60 mls @ 100 mls/hr IV Q6H CHAU Stop: 01/11/20 15:59 Last Infusion: 01/01/20 22:12 Dose: 0 mls/hr Documented by: [id number] Admin: 01/01/20 21:16 Dose: 100 mls/hr Documented by: [id number] Infusion: 01/01/20 18:10 Dose: 0 mls/hr Documented by: [id number] Admin: 01/01/20 17:28 Dose: 100 mls/hr Documented by: [id number] Sodium Chloride (Nss 1000ml) 1,000 mls @ 80 mls/hr IV .[id number] CHAU Stop: 01/31/20 16:04 Last Admin: 01/01/20 17:28 Dose: 80 mls/hr Documented by: [id number] Discontinued Medications Acetaminophen (Acetaminophen 1000 Mg/100 Ml Iv) 1,000 mg IV ONE ONE Stop: 01/01/20 06:53 Last Admin: 01/01/20 07:25 Dose: 1,000 mg Documented by: [id number] Bupivacaine HCl (Bupivacaine 0.5 % 5 Mg/1 Ml Mpf 30ml Vial) Confirm Administered Dose 30 ml .ROUTE .STK-MED ONE Stop: 01/01/20 12:16 Last Admin: 01/01/20 13:07 Dose: 5 ml Documented by: [id number] Famotidine (Famotidine 20mg/5ml Iv Push) 20 mg IV ONE STA Stop: 01/01/20 06:51 Last Admin: 01/01/20 07:25 Dose: 20 mg Documented by: [id number] Fentanyl Citrate (Fentanyl Citrate 100 Mcg/2 Ml Vial) 25 mcg IV Q5M PRN PRN Reason: PACU Use Only-Pain Stop: 01/01/20 20:06 Last Admin: 01/01/20 13:52 Dose: 25 mcg Documented by: [id number] Admin: 01/01/20 13:47 Dose: 25 mcg Documented by: [id number] Sodium Chloride (Nss 1000ml) 500 mls @ 999 mls/hr IV .Q31M ONE Stop: 01/01/20 07:20 Last Infusion: 01/01/20 08:06 Dose: 0 mls/hr Documented by: [id number] Admin: 01/01/20 07:24 Dose: 999 mls/hr Documented by: [id number] Sodium Chloride (Nss 1000ml) 1,000 mls @ 125 mls/hr IV .Q8H CHAU Stop: 01/31/20 08:44 Last Infusion: 01/01/20 16:32 Dose: 0 mls/hr Documented by: [id number] Admin: 01/01/20 09:00 Dose: 125 mls/hr Documented by: [id number] Cefoxitin Sodium (Mefoxin) 2,000 mg in 60 mls @ 100 mls/hr IV NOW STA Stop: 01/01/20 09:13 Last Infusion: 01/01/20 09:45 Dose: 0 mls/hr Documented by: [id number] Admin: 01/01/20 09:05 Dose: 100 mls/hr Documented by: [id number] Acetaminophen (Ofirmev) 1,000 mg in 100 mls @ 400 mls/hr IV NOW ONE; Protocol Stop: 01/01/20 13:26 Last Infusion: 01/01/20 16:33 Dose: 0 mls/hr Documented by: [id number] Admin: 01/01/20 13:37 Dose: 400 mls/hr Documented by: [id number] Ioversol (Ioversol 100ml) 94 ml IV ONCE ONE Stop: 01/01/20 07:59 Last Admin: 01/01/20 07:58 Dose: 94 ml Documented by: [id number] Menthol (Cough Drop (Sugar Free) Magaly 24 Magaly/1 Box) 1 magaly BUCCAL NOW STA Stop: 01/01/20 18:11 Last Admin: 01/01/20 18:14 Dose: 1 magaly Documented by: [id number] Menthol (Cough Drop (Sugar Free) Magaly 24 Magaly/1 Box) Confirm Administered Dose 24 magaly BUCCAL .STK-MED ONE Stop: 01/01/20 18:14 Last Admin: 01/01/20 18:14 Dose: 24 magaly Documented by: [id number] Ondansetron HCl (Ondansetron Inj 2 Mg/Ml 2 Ml Vial) 4 mg IV NOW STA Stop: 01/01/20 06:51 Last Admin: 01/01/20 07:25 Dose: 4 mg Documented by: [id number] Ondansetron HCl (Ondansetron Inj 2 Mg/Ml 2 Ml Vial) 4 mg IV ONCE PRN PRN Reason: PACU Use Only-Nausea/Vomiting Stop: 01/01/20 20:06 Last Admin: 01/01/20 13:49 Dose: 4 mg Documented by: [id number] Discharge Plan Visit Data Chief Complaint: Abdominal Pain Stated Complaint: RIGHT SIDED ABDOMINAL PAIN ED Provider: Marco Gibbs ED Midlevel Provider: Mynor Solis Discharge Problem: Acute appendicitis, Rhinovirus, Acute right lower quadrant pain Patient Disposition: Still a Patient Discharge Instructions Interventions: ED Discharge Assessment Last Done: 01/01/20 11:40 Discharge Problem: Acute appendicitis Qualifiers: Acute appendicitis type: with localized peritonitis Appendicitis gangrene presence: without gangrene Appendicitis perforation presence: without perforat ion Appendicitis abscess presence: without abscess Qualified Code(s): K35.30 - Acute appendicitis with localized peritonitis, without perforation or gangrene
[2020-01-01] MEDS ORDERED: FAMOTIDINE 20MG/5ML IV PUSH IV STA (06:50)
[2020-01-01] MEDS ORDERED: ONDANSETRON INJ 2 MG/ML 2 ML VIAL IV STA (06:50)
[2020-01-01] MEDS ORDERED: SODIUM CHLORIDE 0.9% 1000ML 500 ML IV ONE (06:50)
[2020-01-01] MEDS ORDERED: ACETAMINOPHEN 1000 MG/100 ML IV IV ONE (06:52)
--- NOTE | 2020-01-01 07:04 | Communication Note ---
Date of Service: January 01, 2020 This patient was seen in concert with Dr. Gibbs and we discussed and agreed upon the history, physical, assessment, and plan. See attending's note for details. Resident Activity Tracking Resident Involvement: Resident Care Provided Care Provided: Adult ED
[2020-01-01 07:14] LABS: Appearance Urine Cloudy (Clear); Bacteria Urine Automated 1+ (Negative); Bilirubin Urine Negative (Negative); Blood Urine 2+ (Negative); Color Urine Yellow; Epithelial Cell Urine Auto >30 /lpf (0-5); Glucose Urine UA Negative (Negative); Ketones Urine 2+ (Negative); Leukocyte Esterase Urine Negative (Negative); Nitrite Urine Negative (Negative); Protein Urine Negative (Negative); Specific Gravity Urine 1.024 (1.000-1.030); Urobilinogen Urine Negative (Negative)
[2020-01-01 07:23] LABS: Basophils # (auto) 0.06 K/uL (0-0.2); Basophils % (auto) 0.4 %; Eosinophils # (auto) 0.73 K/uL (0-0.5); Eosinophils % (auto) 4.5 %; Hematocrit (blood only) 42.5 % (37-47); Hemoglobin 13.9 g/dL (12.0-16.0); Immature Granulocytes # (auto) 0.05 K/uL (0.00-0.02); Immature Granulocytes % (auto) 0.3 %; Lymphocytes # (auto) 2.06 K/uL (1.2-3.4); Lymphocytes % (auto) 12.7 %; Mean Corpuscular Hgb Conc 32.7 g/dL (32-36); Mean Corpuscular Volume 85.7 fL (80-100); Mean Platelet Volume 10.3 fL (7.4-10.4); Monocytes # (auto) 0.78 K/uL (0.11-0.59); Monocytes % (auto) 4.8 %; Neutrophils # (auto) 12.58 K/uL (1.4-6.5); Neutrophils % (auto) 77.3 %; Platelet Count 300 K/uL (130-400); RDW Coefficient of Variation 13.4 % (11.5-14.5); RDW Standard Deviation 41.7 fL (36.4-46.3); Red Blood Count 4.96 M/uL (4.2-5.4); White Blood Count 16.26 K/uL (4.8-10.8)
[2020-01-01 07:28] LABS: Pregnancy Test, Serum Negative (Negative)
[2020-01-01 07:31] LABS: BUN Creatinine Ratio 9.7 (10-20); Creatinine Clr Calc Pharmacy 78.7 ml/min; Est GFR (African American) 94.8; Est GFR (Non-African American) 81.8; Potassium 3.3 mmol/L (3.5-5.1)
[2020-01-01 07:34] LABS: Albumin Globulin Ratio 1.1 (0.9-2); Bilirubin,Total 0.5 mg/dl (0.2-1); Globulin 3.8 gm/dl (2.5-4.0); Total Protein 7.8 gm/dl (6.4-8.2)
[2020-01-01] MEDS ORDERED: IOVERSOL 100ml IV ONE (07:58)
--- NOTE | 2020-01-01 08:18 | CT Scan Report ---
CT abd pelvis IV con only CLINICAL HISTORY: Right-sided abdominal pain. Nausea. COMPARISON STUDY: July 2007 TECHNIQUE: Patient was scanned in a dynamic helical fashion during intravenous administration of 94 c c of Optiray 320 A dose lowering technique was utilized adhering to the principles of ALARA. CT DOSE: 294.07 mGy.cm FINDINGS: Lower chest: The heart is normal in size and configuration, without pericardial effusion. The lung ba ses and pleural spaces are clear. Liver: The contrast-enhanced liver is normal in size, contour, and attenuation. There is no intrahepa tic biliary ductal dilatation. The hepatic veins and portal veins are patent. Gallbladder: Unremarkable. Spleen: Normal in size and attenuation. Pancreas: Unremarkable. Adrenal glands: Unremarkable. Kidneys: There is symmetric renal cortical enhancement. The kidneys are normal in size without hydron ephrosis. Bowel: There are no transition zones indicate bowel obstruction. There is no evidence of acute divert iculitis. There is mild appendiceal thickening which measures 8 mm in maximal diameter. This represen ts an interval increase in diameter when compared with the prior study. In the setting of right lower quadrant abdominal pain this could indicate an early acute appendicitis. Clinical correlation in [facility] is advocated. Peritoneum: There is no free air. There is a small amount of free pelvic fluid. Vasculature: The abdominal aorta is normal in course and caliber. Adenopathy: None. Pelvic viscera: The bladder, and pelvic viscera are unremarkable. Skeletal structures: No destructive osseous lesions are seen. IMPRESSION: 1. No evidence of bowel obstruction. No evidence of free air 2. Mild appendiceal thickening which measures 8 mm in maximal diameter. In the setting of right lower quadrant abdominal pain, this could indicate an early acute appendicitis. Clinical correlation in [facility] is advocated. ACT 112: Negative or not required by law. Electronically signed by: Tiburcio Magallanes M.D. 01/01/2020 8:16 AM
[2020-01-01 08:34] LABS: Adenovirus PCR Not Detected (NotDetected); Bordetella parapertussis PCR Not Detected (NotDetected); Bordetella pertussis PCR Not Detected (NotDetected); Chlamydia pneumoniae PCR Not Detected (NotDetected); Coronavirus 229E PCR Not Detected (NotDetected); Coronavirus CoV-2 (COVID19)PCR Not Detected (NotDetected); Coronavirus HKU1 PCR Not Detected (NotDetected); Coronavirus NL63 PCR Not Detected (NotDetected); Coronavirus OC43PCR Not Detected (NotDetected); Human Metapneumovirus PCR Not Detected (NotDetected); Influenza A PCR Not Detected (NotDetected); Influenza B PCR Not Detected (NotDetected); Mycoplasma pneumoniae PCR Not Detected (NotDetected); Parainfluenza Virus 1 PCR Not Detected (NotDetected); Parainfluenza Virus 2 PCR Not Detected (NotDetected); Parainfluenza Virus 3 PCR Not Detected (NotDetected); Parainfluenza Virus 4 PCR Not Detected (NotDetected); Respiratory Syncytial VirusPCR Not Detected (NotDetected)
[2020-01-01] MEDS ORDERED: cefOXitin 2,000 MG/60 ML BAG IV STA (08:38)
[2020-01-01] MEDS ORDERED: SODIUM CHLORIDE 0.9% 1000ML 1,000 ML IV SCH (08:45)
[2020-01-01 08:46] LABS: Rhinovirus/Enterovirus PCR DETECTED (NotDetected)
--- NOTE | 2020-01-01 09:01 | History & Physical Report ---
Date of Service January 01, 2020 Assessment & Plan (1) Acute appendicitis: Plan for laparoscopic appendectomy this morning by Dr. Nino. Mefoxin was given in the ED. Dr. Nino-saw the patient in the emergency room her exam and findings are consistent with acute appendicitis She will be for laparoscopic appendectomy possible open operation She does understand and does wish to proceed History of Present Illness Primary Care Provider: NO PCP 34 y/o female awoke at 4:30 AM with severe RLQ pain. Had some N&V, came to ED for continued pain. LMP 3 weeks ago. No previous abdominal pain. Allergies Allergy/AdvReac Type Severity Reaction Status Date / Time No Known Allergies Allergy Unverified 08/19/16 10:19 Home Medications Home Medications Medication Instructions Recorded Confirmed Type No Known Home Medications 01/01/20 01/01/20 History Past Med/Surg History Medical History Group B streptococcal infection during H/O varicella Surgical History S/P section S/P tonsillectomy [place] teeth extracted Family History Grandmother (Maternal) Diabetes Breast cancer Grandmother (Paternal) Diabetes Other Tuberculosis Social History Smoking Status: Former smoker Preferred Language: Dutch Feels Safe at Home: Yes Review of Systems Constitutional: no fever and no chills Gastrointestinal: + abdominal pain, + nausea and + vomiting Physical Exam Constitutional: WD/WN, vitals as above Respiratory: normal respiratory effort, lungs clear to auscultation Cardiovascular: RRR, no murmur, no edema Gastrointestinal (Abdomen): Inspection/Auscultation: abdomen not distended Percussion/Palpation: + abdomen tender (localized RLQ) and abdomen soft Results & Data Results & Data ([facility]) Vital Signs (Past 12 Hours) Vital Signs Temp Pulse Resp BP Pulse Ox 01/01/20 06:09 36.4 C L 94 H 18 143/98 H 100 PG Care Time/CCT Total # of Minutes Spent Total Time Spent with Patient: Total time spent is greater than 50% in coordination of care (as documented) at patient's floor/unit and/or counseling patient: Coding Level of Care Code None Diagnoses Acute appendicitis K35.80
--- NOTE | 2020-01-01 11:58 | Anesthesiology Consultation ---
Date of Service January 01, 2020 Assessment & Plan (1) Encounter for pre-operative examination: Chart Review Chart Review: Acceptable Risk for Surgery and Patient NOT seen in Pre Admission Testing Consults Requested none History Surgery Operation Date: 01/01/20 07:00 Proposed Procedures p Laparoscopic Appendectomy - Pepe Nino MD, FACS Height/Weight Height: 5 ft 8 in Weight: 57.3 kg Allergies Allergy/AdvReac Type Severity Reaction Status Date / Time No Known Allergies Allergy Unverified 08/19/16 10:19 Medications Home Medications Medication Instructions Recorded Confirmed Last Taken No Known Home Medications 01/01/20 01/01/20 Unknown Active Medications Generic Name Dose Route Start Last Admin Trade Name Freq PRN Reason Stop Dose Admin Sodium Chloride 1,000 mls @ 125 mls/hr 01/01/20 08:45 01/01/20 09:00 Nss 1000ml IV 01/31/20 08:44 125 mls/hr .Q8H CHAU Administration Past Medical History Medical History Group B streptococcal infection during H/O varicella Exercise / Class Metabolic Activity II 4-5 Yardwork/Stairs/Walk up hill Past Family History Family History Grandmother (Maternal) Diabetes Breast cancer Grandmother (Paternal) Diabetes Other Tuberculosis Past Surgical History Surgical History S/P section S/P tonsillectomy [place] teeth extracted Past Anesthesia History No Hx of Anesthesia Complications and No Family Hx of Anesthesia Complications History of PONV No Hx of PONV and No Hx of Motion Sickness Social History Smoking Status: Former smoker Do You Dip or Chew Tobacco: No Hx Alcohol Use: No Hx Substance Use: No Physical Exam Vital Signs Last Vital Signs Temp 36.4 C L 01/01/20 06:09 Pulse 78 01/01/20 08:01 Resp 18 01/01/20 08:01 BP 133/86 01/01/20 08:01 Pulse Ox 98 01/01/20 08:01 Testing Laboratory Results 01/01/20 06:30 01/01/20 06:30 Urine Color Yellow 01/01/20 06:30 Urine Appearance Cloudy (Clear) A 01/01/20 06:30 Urine pH 5.0 (4.5-7.5) 01/01/20 06:30 Ur Specific [place] 1.024 (1.000-1.030) 01/01/20 06:30 Urine Protein Negative (Negative) 01/01/20 06:30 Urine Glucose (UA) Negative (Negative) 01/01/20 06:30 Urine Ketones 2+ (Negative) H 01/01/20 06:30 Urine Nitrite Negative (Negative) 01/01/20 06:30 Ur Leukocyte Esterase Negative (Negative) 01/01/20 06:30 Urine WBC (Auto) 5-10 /hpf (0-5) H 01/01/20 06:30 Urine RBC (Auto) 10-30 /hpf (0-4) H 01/01/20 06:30 U Hyaline Cast (Auto) 1-5 /lpf (0-5) 01/01/20 06:30 U Epithel Cells (Auto) >30 /lpf (0-5) H 01/01/20 06:30 Urine Bacteria (Auto) 1+ (Negative) H 01/01/20 06:30
[2020-01-01] MEDS ORDERED: HYDROmorphone INJ 1 MG/ML SYRINGE IV PRN ×2 (12:05→15:41)
[2020-01-01] MEDS ORDERED: ONDANSETRON INJ 2 MG/ML 2 ML VIAL IV PRN ×2 (12:05→15:41)
[2020-01-01] MEDS ORDERED: ATROPINE SULFATE 0.1 MG/ML 10ML SYR IV PRN (12:05)
[2020-01-01] MEDS ORDERED: ePHEDrine sulfate 50 MG/ML AMP IV PRN (12:05)
[2020-01-01] MEDS ORDERED: BUPIVACAINE 0.5 % 5 MG/1 ML MPF 30ML VIAL ONE (12:15)
[2020-01-01] MEDS ORDERED: PROPOFOL IV EMULSION 10 MG/ML 20 ML VIAL IV ONE (12:21)
[2020-01-01] MEDS ORDERED: fentaNYL citrate 100 MCG/2 ML VIAL ONE ×2 (12:21→12:51)
[2020-01-01] MEDS ORDERED: MIDAZOLAM HCL 1 MG/ML 2ML VIAL ONE (12:21)
[2020-01-01] MEDS ORDERED: LIDOCAINE HCL 2% 2 ML VIAL/AMP(20MG/ML) INFIL ONE (12:21)
[2020-01-01] MEDS ORDERED: NEOSTIGMINE METHYLSULFATE 5 MG/5 ML SYR ONE (12:56)
[2020-01-01] MEDS ORDERED: DEXAMETHASONE SOD INJ 4 MG/ML VIAL ONE (12:56)
[2020-01-01] MEDS ORDERED: ONDANSETRON INJ 2 MG/ML 2 ML VIAL ONE (12:56)
[2020-01-01] MEDS ORDERED: KETOROLAC 30 MG/ML VIAL ONE (12:57)
[2020-01-01] MEDS ORDERED: ROCURONIUM BROMIDE 10 MG/ML 5 ML VIAL IV ONE (12:57)
[2020-01-01] MEDS ORDERED: GLYCOPYRROLATE 0.2 MG/ML VIAL ONE (12:57)
[2020-01-01] MEDS ORDERED: ACETAMINOPHEN 1,000 MG/100 ML VIAL IV ONE (13:12)
--- NOTE | 2020-01-01 13:12 | Post Operative Brief Note ---
PG Immediate Post Op with CF Date of Surgery January 01, 2020 Pre & Post Diagnosis Operation Date: 01/01/20 07:00 Pre-Op Diagnosis: Acute Appendicitis Post-Op Diagnosis: Acute Appendicitis I identified the patient and participated in the time-out.: Yes Procedure Operation Date: 01/01/20 07:00 Actual Procedures p Laparoscopic Appendectomy(Not Applicable) - Pepe Nino MD, FACS Surgeon Pepe Nino MD, FACS [employer] Polly Weber Estimated Blood Loss 5 Findings Consistent with Post-Op Diagnosis Specimens Specimen Description: A. Appendix
[2020-01-01] MEDS: fentaNYL citrate 100 MCG/2 ML VIAL IV PRN ×2 (13:47→13:52)
--- NOTE | 2020-01-01 14:29 | Anesthesiology Progress Note ---
Date of Service January 01, 2020 Anesthesia Post Procedure Vital Signs Vital Signs: Temp Pulse Pulse Resp BP BP Pulse Ox 01/01/20 14:15 37.0 C 65 15 118/79 100 01/01/20 14:05 63 15 126/77 100 01/01/20 13:55 62 14 121/84 100 01/01/20 13:45 62 15 139/84 100 01/01/20 13:35 69 16 119/80 100 01/01/20 13:29 36.7 C 78 13 122/88 100 01/01/20 12:01 37.3 C 81 16 127/82 100 01/01/20 08:01 78 18 133/86 98 01/01/20 06:09 36.4 C L 94 H 18 143/98 H 100 Pain Intensity Abdomen: Pain Intensity: 4 Transfer of Care Handoff Completed per policy Notes Mental Status: alert / awake / arousable and participated in evaluation Patient Amnestic to Procedure: Yes Nausea / Vomiting: adequately controlled Pain: adequately controlled Airway Patency, RR, SpO2: stable & adequate BP & HR: stable & adequate Hydration State: stable & adequate Anesthetic Complications: no major complications apparent and Pt Satisfied with anesthetic care
--- NOTE | 2020-01-01 15:28 | Operative Report (OR) ---
DATE OF OPERATION: 01/01/2020 NAME OF OPERATION: Laparoscopic appendectomy. PREOPERATIVE DIAGNOSIS: Acute appendicitis. POSTOPERATIVE DIAGNOSIS: Acute appendicitis. STAFF SURGEON: Pepe Nino MD. INDUSTRIAL PSYCHOLOGIST: Rick Weber PA-C. ANESTHESIA: General. DESCRIPTION OF PROCEDURE: The patient was brought in the operating room and placed on the operating table in supine position. Pneumatic stockings, orogastric tube were placed. Her abdomen was prepped and draped in usual fashion. 0.5% plain Marcaine was used to anesthetize all incisions. Incision was made just below the umbilicus placing a Veress needle, producing pneumoperitoneum. A 5 mm port placed at this level. Under visualization, a second 5 mm port was placed suprapubically and then a 12 mm port placed in the left lower quadrant. Cecum was reflected. The appendix was grasped and retracted. The base of the appendix was transected using the Endo MAGALY stapler. Then using 2 additional loads, the mesoappendix was transected. She did have some adhesions, which required lysis. After appropriate irrigation and hemostasis, the appendix was placed in an Endobag. The bag was removed through the left lower quadrant site. All ports were then removed. The fascia in the left lower quadrant closed using 0 Vicryl suture. Skin reapproximated using subcuticular 4-0 Monocryl. Dermabond for the suprapubic and periumbilical incision and then Steri-Strips for the left lower quadrant incision. Dressings applied and patient was transferred to recovery room in stable condition. My studio assistant helped with prepping, draping, removal of the hernia and closure of the wounds. I attest to the content of the Intraoperative Record and any orders documented therein. Any exception s are noted below.
[2020-01-01] MEDS ORDERED: PROMETHAZINE HCL 25 MG in SODIUM CHLORIDE 0.9% 50 ML IV PRN (15:41)
[2020-01-01] MEDS ORDERED: HYDROmorphone INJ 0.5 MG/0.5 ML SYR IV PRN (15:41)
[2020-01-01] MEDS ORDERED: IBUPROFEN 600 MG TAB PO PRN (15:41)
[2020-01-01] MEDS ORDERED: HYDROCODONE/ACETAMOPHEN 5/325MG TAB PO PRN (15:41)
[2020-01-01] MEDS ORDERED: ACETAMINOPHEN 325 MG TAB PO PRN (15:41)
[2020-01-01] MEDS ORDERED: PROMETHAZINE HCL 12.5 MG in SODIUM CHLORIDE 0.9% 50 ML IV PRN (16:05)
[2020-01-01] MEDS: SODIUM CHLORIDE 0.9% 1000ML 1,000 ML IV SCH (17:28)
[2020-01-01] MEDS ORDERED: COUGH DROP (SUGAR FREE) LOZ 24 LOZ/1 BOX BUCCAL STA (18:10)
[2020-01-01] MEDS ORDERED: COUGH DROP (SUGAR FREE) LOZ 24 LOZ/1 BOX BUCCAL ONE (18:13)
[2020-01-01] MEDS: HYDROCODONE/ACETAMOPHEN 5/325MG TAB PO PRN (23:17)
[2020-01-02 04:50] VITALS: PULSE 69
[2020-01-02] MEDS: HYDROCODONE/ACETAMOPHEN 5/325MG TAB PO PRN (04:51)
[2020-01-02] MEDS: SODIUM CHLORIDE 0.9% 1000ML 1,000 ML IV SCH (04:52)
[2020-01-02 07:22] VITALS: BP 99/65; TEMP 98.1; O2SAT 99
--- NOTE | 2020-01-03 01:00 | Discharge Summary (DS) ---
PRINCIPAL DIAGNOSIS: Acute appendicitis. PROCEDURES: The patient underwent laparoscopic appendectomy. HISTORY OF PRESENT ILLNESS: The patient is a 34-year-old female presenting to the Emergency Room with acute abdominal pain with CAT scan showing acute appendicitis. HOSPITAL COURSE: The patient was taken to the operating room where she underwent laparoscopic appendectomy, which she tolerated very well. She had an uncomplicated appendicitis. Was felt stable for discharge now to home on oral medications, to be followed in the surgical clinic within 2 weeks.
== END 2020-01-02 11:10 | disposition home or self-care (01) ==
LOC: ED 06:01 → OR 11:40 → 3W 11:40
DX: Z80.3 Family history of malignant neoplasm of breast; Z83.3 Family history of diabetes mellitus; K35.30 Acute appendicitis with localized peritonitis, without perforation or gangrene; Z87.891 Personal history of nicotine dependence